=== PATIENT | female | born 1940 | race Caucasian/White ===

== ENCOUNTER 2024-09-18 10:20 | Day surgery (SDC) | payer MEDICARE, OTHER ==
[2024-09-16 10:44] LABS: BASOPHILS % (AUTO) 0.4 % (0-1); EOSINOPHILS # (AUTO) 0.1 X10'3 (0-0.9); EOSINOPHILS % (AUTO) 1.6 % (0-6); LYMPHOCYTES # (AUTO) 2.5 X10'3 (1.1-4.8); LYMPHOCYTES % (AUTO) 26.2 % (21-51); MEAN CORPUSCULAR HGB CONC 32.5 g/dL (33.0-36.5); MEAN CORPUSCULAR VOLUME 80.1 FL (78-98); MEAN PLATELET VOLUME 6.7 FL (7.4-10.4); MONOCYTES # (AUTO) 0.7 X10'3 (0-0.9); MONOCYTES % (AUTO) 7.9 % (2-12); NEUTROPHILS % (AUTO) 63.9 % (42-75); PRE OP HEMATOCRIT 36.5 % (35.0-45.0); PRE OP HEMOGLOBIN 11.9 g/dL (12.0-16.0); PRE OP PLATELET COUNT 499 X10'3 (140-440); PRE OP WHITE BLOOD COUNT 9.4 10'3 (4.8-10.8); RED BLOOD COUNT 4.56 X10'6 (4.20-5.60); RED CELL DISTRIBUTION WIDTH 18.2 % (11.5-14.5)
[2024-09-16 11:03] LABS: ALBUMIN 3.3 G/DL (3.4-5.0); ALBUMIN/GLOBULIN RATIO 0.7 (1.1-1.5); ALKALINE PHOSPHATASE 131 IU/L (46-116); BLOOD UREA NITROGEN 13 MG/DL (7-18); CALCIUM 9.4 MG/DL (8.5-10.1); CHLORIDE 103 MMOL/L (99-107); CREATININE 0.81 MG/DL (0.40-0.90); PRE OP ALT 21 U/L (30-65); PRE OP ANION GAP 14 (8-16); PRE OP AST 15 U/L (10-37); PRE OP BILIRUB, TOTAL 0.5 MG/DL (0.0-1.0); PRE OP GLUCOSE 106 MG/DL (70-104); PRE OP POTASSIUM 3.7 MMOL/L (3.4-5.1); PRE OP SODIUM 143 MMOL/L (135-145); TOTAL CARBON DIOXIDE 26.1 MMOL/L (24-32); TOTAL PROTEIN 8.1 G/DL (6.4-8.2); eGFR 68 ML/MIN
[~2024-09-18] VITALS: Ht 160 cm; Wt 60.8 kg
[2024-09-18] VITALS (7 sets, daily range): BP systolic 135–155; BP diastolic 64–81; PULSE 74–98; RESP 15–16; TEMP 99.1; O2SAT 93–99
[2024-09-18] MEDS: ringers solution, lacted 1,000 ML IV SCH (05:30)
[~2024-09-18 10:20] MED LIST: ASPI81TA52 PO; HYDR-3973 PO; NITR0.4T51 SL; ROSU40TA89 PO; ZOLP12.570 PO
[2024-09-18] MEDS: famotidine 20mg tablet PO ONE (10:45)
[2024-09-18] MEDS ORDERED: sevoflurane 250ml liquid IH ONE (11:40)
[2024-09-18] MEDS ORDERED: midazolam 1 mg/ML 2ml injection ONE (11:49)
[2024-09-18] MEDS ORDERED: propofol inj 20 ML IV ONE (12:07)
[2024-09-18] MEDS ORDERED: ondansetron/PF 4mg/2ml inj ONE (12:07)
[2024-09-18] MEDS ORDERED: LIDOcaine 2% (20mg/ml) 5ml vial ONE (12:07)
[2024-09-18] MEDS ORDERED: acetaminophen 1,000mg/100ml IV 100 ML IV ONE (12:07)
[2024-09-18] MEDS ORDERED: dexamethasone sod phosphate 4mg/ml inj. ONE (12:12)
[2024-09-18] MEDS ORDERED: glycopyrrolate 0.2mg/ml inj ONE (12:15)
[2024-09-18] MEDS ORDERED: neostigmine methylsulfate 1 MG/ML 10ml vial ONE (12:15)
[2024-09-18] MEDS ORDERED: albuterol 2.5 MG/3 ML nebule NEB ONE (12:45)
[2024-09-18] MEDS ORDERED: morphine 4 MG/ML inj SYRINge IV PRN ×2 (12:45)
[2024-09-18] MEDS ORDERED: ringers solution, lacted 1,000 ML IV SCH (12:45)
[2024-09-18] MEDS ORDERED: labetalol 20mg/4ml (5mg/ml) syringe IV PRN ×2 (12:45)
[2024-09-18] MEDS ORDERED: hydrALAZINE 20mg/ml inj. IV PRN (12:45)
[2024-09-18] MEDS ORDERED: ondansetron/PF 4mg/2ml inj IV PRN (12:45)
[2024-09-18] MEDS ORDERED: fentaNYL/PF 50MCG/1 ML 2ML syringe IV PRN ×2 (12:45)
[2024-09-18] MEDS ORDERED: morphine 2 MG/ML inj. syringe IV PRN (12:45)
== END 2024-09-18 13:20 | disposition home or self-care (01) ==
LOC: OR 10:20
PROVIDERS: ATTEND Internal Medicine Critical Care Medicine
DX: R22.2 Localized swelling, mass and lump, trunk (principal); I25.10 Atherosclerotic heart disease of native coronary artery without angina pectoris; E78.5 Hyperlipidemia, unspecified; I25.2 Old myocardial infarction; Z85.3 Personal history of malignant neoplasm of breast; Z79.82 Long term (current) use of aspirin; Z79.891 Long term (current) use of opiate analgesic; Z79.899 Other long term (current) drug therapy; Z95.5 Presence of coronary angioplasty implant and graft; Z96.643 Presence of artificial hip joint, bilateral; Z98.890 Other specified postprocedural states; Z88.0 Allergy status to penicillin
CPT/HCPCS: 31627; 31628; 31629; 31653; 36415; 71250; 80053; 82948; 85025; 87015; 87070; 87116; 87206; 93005; 94760; A4618; J0131; J1100; J2003; J2250; J2371; J2405; J2704; J2710; J3490; J7120; Z7506; Z7512; Z7610; 31622; 31624; 31625; 31626; 31654